=== PATIENT | female | born 1990 | race Caucasian/White ===

== ENCOUNTER 2017-01-29 22:45 | Emergency (ER) | payer OTHER ==
--- NOTE | ~2017-01-29 | CT71 ---
[facility] A Service of [facility] RADIOLOGY TEXT RESULTS PATIENT: JOSE GONSAELS LOCATION: SED : 91 UNIT #: [id number] AGE: [address]: Ra Sanches MD SEX: F ORDER DR: [id number] [place] [id number] E MR#: [id number] Acc #: [id number] NAME: JOSE GONSALES : 1990 SEX: F STUDY DATE/TIME: 01/29/2017 23:54 UNIT: SED ROOM: STUDY DESCRIPTION: CT Head Wo Contrast Attending Physician: Ra Sanches M.D. Ordering Physician: Ra Sanches M.D. Primary Care Physician: Giacomo Richardson Aprn MEDICAL IMAGING REPORT This report is preliminary unless electronic signature is present. EXAM Head CT, 01/29/2017 at 23:54 INDICATION Dizziness and hypertension with lightheadedness and palpitations. Headache for 3 days. Remaining symptoms for 1 day. Comparison is 08/10/2015. TECHNIQUE This CT exam was performed with one or more of the following radiation dose reduction techniques: automatic exposure control, adjustment of mA and/or kV according to patient size, and iterative reconstruction. FINDINGS Axial noncontrast images were obtained from the skull base to the vertex. Ventricular size and configuration are normal. There is no evidence of acute infarct or hemorrhage. There are no extraaxial fluid collections. No mass lesion or mass effect is seen. There are no skull fractures. IMPRESSION Normal noncontrast head CT. Dictated by... Martin Sanchez Jr., M.D. THIS IS AN ELECTRONICALLY VERIFIED REPORT Martin Sanchez Jr., M.D. at 01/30/2017 6:07 AM NELSY/nasreen TD: 01/30/2017 03:13 [facility] A Service [facility] RADIOLOGY TEXT RESULTS PATIENT: JOSE GONSALES LOCATION: SED : 91 UNIT #: [id number] AGE: [address]: Ra Sanches MD SEX: F ORDER DR: KARIE #: [id number] MEDICAL IMAGING REPORT Page 1 of 1
--- NOTE | ~2017-01-29 | EKG ---
PATIENT: JOSE GONSALES UNIT #: [id number] Ventricular Rate: 78 BPM Atrial Rate: 78 BPM P-R Interval: 130 ms QRS Duration: 76 ms Q-T Interval: 380 ms QTC Calculation(Bezet): 433 ms P [place]: 72 degrees Calculated R [place]: 78 degrees Calculated T [place]: 67 degrees Diagnosis Line: Normal sinus rhythm Diagnosis Line: Normal ECG Diagnosis Line: No previous ECGs available Diagnosis Line: Confirmed by JOLEEN MARTIN MD ([id number]) on 01/31/2017 Diagnosis Line: 8:04:01 PM INTERPRETING MD: MARIO SPEAR
--- NOTE | ~2017-01-29 | CR63 ---
[facility] A Service of [facility] RADIOLOGY TEXT RESULTS PATIENT: JOSE GONSALES LOCATION: SED : 91 UNIT #: [id number] AGE: [address]: Ra Sanches MD SEX: F ORDER DR: [id number] [place] [id number] E MR#: [id number] Acc #: [id number] NAME: JOSE GONSALES. : 1990 SEX: F STUDY DATE/TIME: 01/29/2017 23:56 UNIT: SED ROOM: STUDY DESCRIPTION: CR Chest 2 View Attending Physician: Ra Sanches M.D. Ordering Physician: Ra Sanches M.D. Primary Care Physician: Giacomo Richardson Aprn MEDICAL IMAGING REPORT This report is preliminary unless electronic signature is present. EXAM Chest x-ray, 01/29/2017 23:56 INDICATION Hypertension, dizziness, lightheadedness and heart palpitations for 1 day. FINDINGS PA and lateral examination of the chest upright shows a good expansion of the parenchyma with a normal distribution of the pulmonary vascularity. There is no indication of congestion, effusion, infiltrate, tumor, or nodular density. The pleural reflections and diaphragmatic contours are normal. The cardiac silhouette and mediastinal anatomy is within normal limits. IMPRESSION Normal chest. Dictated by... Martin Sanchez Jr., M.D. THIS IS AN ELECTRONICALLY VERIFIED REPORT Martin Sanchez Jr., M.D. at 01/30/2017 6:07 AM NELSY/nasreen TD: 01/30/2017 03:03 JOB #: [id number] MEDICAL IMAGING REPORT Page 1 of 1
[~2017-01-29 22:45] MED LIST: ADDERALL 10 MG10 M1 PO; BIRTH CONTROL PILL PO; CLEOCIN150 M2 PO; COZAAR PO; FIORICET1 TAB; HYDROCHLOROTH12.5 MG PO; LISINOPRIL10 MG PO; MONDOXYNE NL100 MG PO; MONONESSA 28 T1 EACH PO; MORGIDOX100 MG PO; PHENERGAN25 M1; PHENERGAN25 MG PO; TOPIRAMATE PO; TRAMADOL HCL50 M1 PO
[2017-01-29 23:27] LABS: BASOPHIL% 0.6 % (0-2.5); EOSINOPHIL# 0.1 X10e3 (0-0.7); EOSINOPHIL% 2.2 % (0.0-7.0); HEMATOCRIT 39.1 % (35.0-45.0); LYMPHOCYTE# 2.5 X10e3 (1.0-3.5); LYMPHOCYTE% 43.5 % (17.0-45.0); MEAN CELL VOLUME 89.8 FL (83-96); MEAN CORPUSCULAR HEMOGLOBIN 29.8 PG (28-34); MEAN CORPUSCULAR HGB CONC 33.2 g/dL (30-36); MEAN PLATELET VOLUME 8.6 FL (6.5-11.5); MONOCYTE# 0.7 X10e3 (0-1.0); MONOCYTE% 12.8 % (3.0-12.0); NEUTROPHIL# 2.4 X10e3 (1.5-7.1); NEUTROPHIL% 40.9 % (40-75); PLATELET COUNT 260 X10e3 (140-420); RED BLOOD COUNT 4.35 X10e (3.90-5.30); RED CELL DISTRIBUTION WIDTH 14.2 % (11.0-15.5); WHITE BLOOD COUNT 5.8 X10e3 (4.0-10.5)
[2017-01-29 23:29] LABS: DIFF IND NO
[2017-01-29 23:35] LABS: BUN/CREATININE RATIO 16.25; CALCIUM SERUM 8.2 mg/dL (8.4-10.2); CREATININE SERUM 0.8 mg/dL (0.6-1.4); GLOM FILT RATE Estimated 102.6 mL/min (>60); POTASSIUM 3.7 mmol/L (3.5-5.1)
[2017-01-29 23:40] LABS: POC - CKMB <1.0 ng/mL (0.0-7.9); POC - TROPONIN <0.05 ng/mL (<=0.05)
[2017-01-29 23:43] LABS: URINE SOURCE CLEAN CATCH
[2017-01-29 23:45] LABS: URINE APPEARANCE CLOUDY; URINE BILIRUBIN NEG (NEG); URINE BLOOD NEG (NEG); URINE COLOR YELLOW; URINE GLUCOSE NEG (NORM); URINE KETONE NEG (NEG); URINE LEUKOCYTE ESTERASE NEG (NEG); URINE NITRATE NEG (NEG); URINE PH 7.5 (5-8); URINE PROTEIN NEG (NEG); URINE UROBILINOGEN 0.2 MG/DL (NORM)
[2017-01-29 23:52] LABS: MICRO INDICATED? NO
== END 2017-01-30 01:13 | disposition home or self-care (01) ==
LOC: SED 22:45
PROVIDERS: Emergency Medicine
DX: R00.2 Palpitations (principal); R51 Headache; R42 Dizziness and giddiness; I10 Essential (primary) hypertension; Z79.899 Other long term (current) drug therapy; Z88.0 Allergy status to penicillin; Z88.1 Allergy status to other antibiotic agents; Z88.8 Allergy status to other drugs, medicaments and biological substances
CPT/HCPCS: 36415; 70450; 71020; 80048; 81003; 82553; 84443; 84484; 84703; 85025; 93005; 99284; J1885